=== PATIENT | female | born 1995 | race Caucasian/White ===

== ENCOUNTER 2018-01-08 09:20 | Emergency (ER) | payer MEDICAID ==
[~2018-01-08] VITALS: Ht 162.6 cm; Wt 64.4 kg
[2018-01-08 09:27] VITALS: Ht 162.6 cm; Wt 64.4 kg
[2018-01-08 10:40] VITALS: BP 124/77
== END 2018-01-08 10:40 | disposition home or self-care (01) ==
LOC: ED 09:20
DX: S63.502A Unspecified sprain of left wrist, initial encounter (principal); Z88.8 Allergy status to other drugs, medicaments and biological substances; W22.8XXA Striking against or struck by other objects, initial encounter; Y93.89 Activity, other specified; Y92.89 Other specified places as the place of occurrence of the external cause; Y99.8 Other external cause status
CPT/HCPCS: Q0092; Q0162

== ENCOUNTER 2018-01-14 08:32 | Emergency (ER) | payer MEDICAID ==
[~2018-01-14] VITALS: Ht 162.6 cm; Wt 56.2 kg
[2018-01-14 08:42] VITALS: BP 124/62; Ht 162.6 cm; Wt 56.2 kg
== END 2018-01-14 10:10 | disposition home or self-care (01) ==
LOC: ED 08:32
DX: S60.212D Contusion of left wrist, subsequent encounter (principal); X58.XXXD Exposure to other specified factors, subsequent encounter; I49.9 Cardiac arrhythmia, unspecified; Z88.8 Allergy status to other drugs, medicaments and biological substances; Z98.890 Other specified postprocedural states
CPT/HCPCS: Q0092

== ENCOUNTER 2018-03-09 19:31 | Emergency (ER) | payer MEDICAID ==
[~2018-03-09] VITALS: Ht 162.6 cm; Wt 69.9 kg
[2018-03-09 20:20] VITALS: Ht 162.6 cm; Wt 69.9 kg
[2018-03-09 22:03] LABS: BASOPHIL % 1.2 % (0-2); PLATELET COUNT 226 x10^3mcL (130-400); RED CELL DISTRIBUTION WIDTH 13.6 % (11.5-14.5)
[2018-03-09 22:13] LABS: CALCIUM 8.6 mg/dL (8.5-10.1); CARBON DIOXIDE 26.8 mmol/L (21-32); CHLORIDE SERUM 102 mmol/L (98-107); CREATININE SERUM 0.6 mg/dL (0.6-1.0); GFR1 > 60 mL/min; GLUCOSE SERUM 89 mg/dL (74-106); POTASSIUM SERUM 4.5 mmol/L (3.5-5.1); SODIUM SERUM 136 mmol/L (136-145)
[2018-03-09 22:18] LABS: ALBUMIN 3.6 g/dL (3.4-5.0); ALKALINE PHOSPHATASE 61 U/L (46-116); ALT/SGPT 16 U/L (14-59); AST/SGOT 23 U/L (15-37); MAGNESIUM 1.7 mg/dL (1.8-2.4)
[2018-03-09 23:16] VITALS: BP 110/68
== END 2018-03-09 23:16 | disposition home or self-care (01) ==
LOC: ED 19:31
PROVIDERS: Emergency Medicine
DX: R07.89 Other chest pain (principal); R51 Headache; R42 Dizziness and giddiness; Z98.890 Other specified postprocedural states
CPT/HCPCS: J1885; J2270; J7030; Q0092

== ENCOUNTER 2018-03-17 15:27 | Emergency (ER) | payer SELFPAY ==
[~2018-03-17] VITALS: Ht 162.6 cm; Wt 71.8 kg
[2018-03-17 15:37] VITALS: Ht 162.6 cm; Wt 71.8 kg
[2018-03-17 18:14] VITALS: BP 115/90
== END 2018-03-17 18:14 | disposition home or self-care (01) ==
LOC: ED 15:27
DX: J40 Bronchitis, not specified as acute or chronic (principal); Z98.890 Other specified postprocedural states
CPT/HCPCS: 87804; Q0092

== ENCOUNTER 2018-07-23 15:33 | Emergency (ER) | payer MEDICAID ==
[~2018-07-23] VITALS: Ht 162.6 cm; Wt 80.7 kg
[2018-07-23 15:49] VITALS: Ht 162.6 cm; Wt 80.7 kg
[2018-07-23 16:51] VITALS: BP 120/68
== END 2018-07-23 16:51 | disposition home or self-care (01) ==
LOC: ED 15:33
DX: G89.18 Other acute postprocedural pain (principal); Z88.8 Allergy status to other drugs, medicaments and biological substances; Z98.890 Other specified postprocedural states